=== PATIENT | male | born 1950 | race Caucasian/White ===

== ENCOUNTER 2020-05-25 19:35 | Emergency (ER) | payer OTHER ==
--- NOTE | 2020-05-25 19:57 | TELE ---
HPI Do you have fever,cough or shortness of breath?: No - General Reason For Visit: COVID TESTING Time Seen by Provider: 05/25/20 19:52 History Source: Patient Exam Limitations: No Limitations - History of Present Illness 05/25/20 19:55 this encounter was done via telephone. patient unable to navigate the video. Patient reports that he would like a COVID test, reports that his son is getting [id number] and patient would like to be cautious. Denies shortness of breath, fevers, chills, cough, nasal congestion, headache, diarrhea, abdominal pain. Past History - Travel History Traveled outside of the country in the last 30 days: No Close contact w/someone who was outside of country & ill: No - Medical History GI Disorders: Yes (gerd) Review of Systems - Review of Systems Able to Perform ROS?: Yes Limited [place] proficient: No Constitutional: No: Symptoms Reported, See HPI, Chills, Diaphoresis, Fever, Loss of Appetite, Malaise, Night Sweats, Weakness, Weight Stable, Unintentional Wgt. Loss, Unexplained wgt Loss, Other Respiratory: No: Symptoms reported, See HPI, Cough, Orthopnea, Shortness of Breath, SOB with Exertion, SOB at Rest, Stridor, Wheezing, Productive cough, Hemoptysis, Other Cardiac (ROS): No: Symptoms Reported, See HPI, Chest Pain, Edema, Irregular Heart Rate, Lightheadedness, Palpitations, Syncope, Chest Tightness, Other *Physical Exam - Physical Exam General Appearance: Yes: Appropriately Dressed Respiratory/Chest: positive: Other (SPEAKING IN FULL IN SENTENCES, NO SHORTNESS OF BREATH) Neurologic: positive: Alert, Normal Mood/Affect, Normal Response - Medical Decision Making 05/25/20 19:57 Encounter for COVID test. P: COVID test ordered. Patient was instructed to go to [facility] in parking lot. Patient verbalized understanding Discharge Diagnosis at time of Disposition: Encounter by telehealth for suspected COVID-19 - Referrals Follow-up Referral(s): Ruthie Mcclain [Primary Care Provider] - - Patient Instructions Discharge Instructions: [facility]-Coronavirus Instructions - Discharge Disposition: HOME
== END 2020-05-25 19:59 | disposition home or self-care (01) ==
LOC: JVIRT 19:35
DX: Z11.59 Encounter for screening for other viral diseases (principal)
CPT/HCPCS: 99441-95; C9803; U0003